=== PATIENT | male | born 1990 | race Caucasian/White ===

== ENCOUNTER 2018-12-29 11:17 | Emergency (ER) | payer SELFPAY ==
[~2018-12-29] VITALS: Ht 180.3 cm; Wt 82.0 kg
[2018-12-29 15:44] VITALS: BP 127/75
== END 2018-12-29 15:45 | disposition home or self-care (01) ==
LOC: ER 11:17
DX: F07.81 Postconcussional syndrome (principal); S09.8XXA Other specified injuries of head, initial encounter; F12.10 Cannabis abuse, uncomplicated; W22.8XXA Striking against or struck by other objects, initial encounter; Y93.89 Activity, other specified; Y92.89 Other specified places as the place of occurrence of the external cause; Y99.8 Other external cause status
CPT/HCPCS: 99282